=== PATIENT | female | born 1965 | race Caucasian/White ===

== ENCOUNTER 2018-11-06 07:14 | Day surgery (SDC) | payer BC ==
[~2018-11-06] VITALS: Ht 165.1 cm; Wt 110.7 kg
[~2018-11-06 07:14] MED LIST: ACET325; ASCO500 PO; ASPI81EC; ATOR20 PO; Acerola C500 MG PO; CHOL10002 PO; Lopressor 50 mg50 MG PO; METO25ER; METO50ER PO; ONDA4ODT MM; OXYACE5T PO; PROM25 PO; Percocet 5-3251 EACH PO; ROSU10TA; RXCLIN PO; ST. JOSEPH ASPI81 MG PO; TOPROL XL; TRIE10TC; UBID100; VITAMIN D3 PO; VITAMIN D5000 UNIT PO; Zofran Odt4 MG SL
--- NOTE | 2018-11-06 08:22 | NUR ---
Ambulatory in Day SurgeryPatient states colon prep results clear. History, Chart, Medications and Allergies reviewed before start of procedure.Lungs clear T/O to Auscultation. Patient confirms NPO status and agrees with scheduled surgery. Pre-Op teaching done. Pt verbalizes understanding. Patient States Post-Procedure ride home has been arranged.
--- NOTE | 2018-11-06 08:40 | NUR ---
FRIEND WAS BROUGHT BACK TO BEDSIDE. PT HAS NO COMPLAINTS AT THIS TIME.
--- NOTE | 2018-11-06 09:24 | NUR ---
11/06/18 0924 Jimmie Pablo PATIENT DETERMINED TO BE ASA APPROPRIATE FOR PROPOFOL SEDATION PRIOR TO START OF PROCEDURE BY 3-LEAD EKG REVIEWED WITH PHYSICIAN PRIOR TO START OF PROCEDURE.Patient to ENDO 1History, Chart, Medications and Allergies reviewed before start of procedure.MONITOR INTACT WITH CONTINUOUS PULSE OXIMETRY AND INTERMITTENT BP.O2 VIA N/C INTACT THROUGHOUT SEDATION/PROCEDURE.
--- NOTE | 2018-11-06 10:30 | NUR ---
Patient up to Ambulate independently. Gait steady. Discharge instructions reviewed with patient. Patient verbalizes understanding. Copy given to patient to take home. Patient States Post-Procedure ride home has been arranged. Discharged via wheelchair to private car for ride home.
== END 2018-11-06 22:56 | disposition home or self-care (01) ==
LOC: ORSCMMR 07:14 → ORD 09:00 → ORSCMMR 09:00
PROVIDERS: Internal Medicine Gastroenterology
PROC: 0DBK8ZX Excision of Ascending Colon, Via Natural or Artificial Opening Endoscopic, Diagnostic (ICD-10-PCS; principal; 2018-11-06 09:00)
PROC: 0DBH8ZX Excision of Cecum, Via Natural or Artificial Opening Endoscopic, Diagnostic (ICD-10-PCS; principal; 2018-11-06 09:00)
DX: Z12.11 Encounter for screening for malignant neoplasm of colon (principal); Z86.010 Personal history of colon polyps; D12.0 Benign neoplasm of cecum; D12.2 Benign neoplasm of ascending colon; I10 Essential (primary) hypertension; E78.00 Pure hypercholesterolemia, unspecified; Z79.899 Other long term (current) drug therapy; Z79.82 Long term (current) use of aspirin; E66.01 Morbid (severe) obesity due to excess calories; Z68.39 Body mass index [BMI] 39.0-39.9, adult
CPT/HCPCS: 88305; J2250; J2704; J7120

== ENCOUNTER → 2018-11-13 | Outpatient (CLI) | payer BC | END | disposition home or self-care (01) | LOC: LAB SHORT 15:50 → PLD 15:50 | DX: D23.10 Other benign neoplasm of skin of unspecified eyelid, including canthus (principal) | CPT/HCPCS: 88305 ==

== ENCOUNTER 2019-04-10 06:11 | Day surgery (SDC) | payer BC ==
[~2019-04-10] VITALS: Ht 165.1 cm; Wt 110.8 kg
[~2019-04-10 06:11] MED LIST changes: +GABA100 PO
== END 2019-04-10 09:17 | disposition home or self-care (01) ==
LOC: ORSCSDS 06:11
PROVIDERS: Podiatrist Foot & Ankle Surgery
PROC: 0QBM0ZZ Excision of Left Tarsal, Open Approach (ICD-10-PCS; principal; 2019-04-10 07:30)
PROC: 0JNR0ZZ Release Left Foot Subcutaneous Tissue and Fascia, Open Approach (ICD-10-PCS; principal; 2019-04-10 07:30)
DX: M72.2 Plantar fascial fibromatosis (principal); E78.5 Hyperlipidemia, unspecified; E66.01 Morbid (severe) obesity due to excess calories; Z68.41 Body mass index [BMI] 40.0-44.9, adult; Z79.899 Other long term (current) drug therapy; Z79.82 Long term (current) use of aspirin
CPT/HCPCS: J0171; J0690; J1100; J1885; J2250; J2405; J2704; J3010; J7120

== ENCOUNTER 2019-12-06 04:21 | Emergency (ER) | payer BC ==
[~2019-12-06] VITALS: Ht 165.1 cm; Wt 108.9 kg
== END 2019-12-06 04:58 | disposition home or self-care (01) ==
LOC: ER 04:21
DX: T15.11XA Foreign body in conjunctival sac, right eye, initial encounter (principal); Z91.018 Allergy to other foods; Z88.8 Allergy status to other drugs, medicaments and biological substances; Z79.82 Long term (current) use of aspirin; Z79.899 Other long term (current) drug therapy; I10 Essential (primary) hypertension; E78.5 Hyperlipidemia, unspecified
CPT/HCPCS: 65210; 99282-25

== ENCOUNTER 2020-02-27 21:06 | Emergency (ER) | payer BC ==
[~2020-02-27] VITALS: Ht 170.2 cm; Wt 104.3 kg
[2020-02-27] MEDS ORDERED: Roxicodone5 MG PO (21:40)
== END 2020-02-27 22:07 | disposition home or self-care (01) ==
LOC: ER 21:06
DX: S60.212A Contusion of left wrist, initial encounter (principal); I10 Essential (primary) hypertension; E78.5 Hyperlipidemia, unspecified; X58.XXXA Exposure to other specified factors, initial encounter
CPT/HCPCS: 29125; 73100; 99283-25; A9270

== ENCOUNTER → 2021-09-04 | Outpatient (CLI) | payer BC ==
[~2021-09-04] MED LIST changes: +Roxicodone5 MG PO
== END | disposition home or self-care (01) ==
LOC: LAB 08:39 → LAB SHORT 08:39
DX: N39.0 Urinary tract infection, site not specified (principal)
CPT/HCPCS: 87077; 87086; 87186

== ENCOUNTER → 2021-10-09 | Outpatient (CLI) | payer BC | END | disposition home or self-care (01) | LOC: LAB SHORT 08:28 → LAB 08:28 | DX: N39.0 Urinary tract infection, site not specified (principal) | CPT/HCPCS: 87086 ==

== ENCOUNTER 2022-02-23 06:21 | Day surgery (SDC) | payer BC ==
[~2022-02-23] VITALS: Ht 165.1 cm; Wt 111.8 kg
[~2022-02-23 06:21] MED LIST changes: +ACET325 PO; +FLUC150A; +IBUP200 PO; +NYAMYC; +ONDA8 PO; +ROSU10TA PO
--- NOTE | 2022-02-23 07:52 | NUR ---
02/23/22 0751 Victor Hugo Walton ROPIVACAINE 0.2% 20 MLS MIXED W/ EPI 0.10 PER ORDER TO MAKE ROPIVACAINE 0.2% 1:200,000 FOR INJECTION AT OPSITE BY DR ORDAZ
== END 2022-02-23 10:40 | disposition home or self-care (01) ==
LOC: ORSCSDS 06:21
PROVIDERS: Podiatrist Foot & Ankle Surgery
PROC: 0L8N0ZZ Division of Right Lower Leg Tendon, Open Approach (ICD-10-PCS; principal; 2022-02-23 07:30)
PROC: 0QBL0ZZ Excision of Right Tarsal, Open Approach (ICD-10-PCS; principal; 2022-02-23 07:30)
DX: M24.571 Contracture, right ankle (principal); M25.571 Pain in right ankle and joints of right foot; M65.28 Calcific tendinitis, other site; I10 Essential (primary) hypertension; E78.5 Hyperlipidemia, unspecified; Z85.3 Personal history of malignant neoplasm of breast; Z85.850 Personal history of malignant neoplasm of thyroid; Z79.899 Other long term (current) drug therapy; Z79.82 Long term (current) use of aspirin; E66.01 Morbid (severe) obesity due to excess calories; Z68.41 Body mass index [BMI] 40.0-44.9, adult
CPT/HCPCS: A9270; C1713; J0171; J0690; J1100; J1885; J2250; J2405; J2704; J2795; J3010; J7120

== ENCOUNTER → 2022-05-17 | Outpatient (CLI) | payer BC | END | disposition home or self-care (01) | LOC: LAB SHORT 13:13 | DX: D23.122 Other benign neoplasm of skin of left lower eyelid, including canthus (principal) | CPT/HCPCS: 88305 ==